=== PATIENT | female | born 1970 | race Caucasian/White ===

== ENCOUNTER → 2025-01-12 07:21 | Outpatient (REF) | payer OTHER, SELFPAY | LOC: HWRAD 07:21 | PROVIDERS: ATTENDING PHYSICIAN Family Medicine | DX: K76.0 Fatty (change of) liver, not elsewhere classified (principal) | CPT/HCPCS: 76700 ==

== ENCOUNTER → 2025-03-15 12:30 | Outpatient (REF) | payer OTHER, SELFPAY | LOC: HWRAD 12:30 | PROVIDERS: ATTENDING PHYSICIAN Family Medicine; REFERRING PHYSICIAN Chiropractor | DX: M19.90 Unspecified osteoarthritis, unspecified site (principal) | CPT/HCPCS: 73140 ==

== ENCOUNTER → 2025-03-19 14:55 | Outpatient (REF) | payer OTHER, SELFPAY | LOC: HWRAD 14:55 | PROVIDERS: ATTENDING PHYSICIAN Family Medicine | DX: Z87.891 Personal history of nicotine dependence (principal) | CPT/HCPCS: 71271 ==

== ENCOUNTER → 2025-03-27 06:41 | Outpatient (REF) | payer OTHER, SELFPAY | LOC: MRI 3T 06:41 | PROVIDERS: ATTENDING PHYSICIAN Family Medicine | DX: M25.519 Pain in unspecified shoulder (principal) | CPT/HCPCS: 73221 ==

== ENCOUNTER → 2025-03-30 16:45 | Outpatient (REF) | payer OTHER, SELFPAY | LOC: RAD 16:45 | PROVIDERS: ATTENDING PHYSICIAN Family Medicine | DX: K86.89 Other specified diseases of pancreas (principal) | CPT/HCPCS: 74170; Q9967 ==

== ENCOUNTER → 2025-04-10 12:02 | Outpatient (REF) | payer OTHER, SELFPAY | LOC: MRI 12:02 | PROVIDERS: ATTENDING PHYSICIAN Family Medicine | DX: G43.E09 Chronic migraine with aura, not intractable, without status migrainosus (principal) | CPT/HCPCS: 70553; A9575 ==

== ENCOUNTER → 2025-06-26 09:06 | Outpatient (REF) | payer OTHER, SELFPAY | LOC: PAVMRI 09:06 | PROVIDERS: ATTENDING PHYSICIAN Family Medicine | DX: R22.2 Localized swelling, mass and lump, trunk (principal) | CPT/HCPCS: 71552; A9575 ==

== ENCOUNTER → 2025-07-03 12:30 | Outpatient (REF) | payer OTHER, SELFPAY | LOC: HWRAD 12:30 | PROVIDERS: ATTENDING PHYSICIAN Internal Medicine Rheumatology; FAMILY PHYSICIAN Family Medicine; REFERRING PHYSICIAN Chiropractor | DX: M50.90 Cervical disc disorder, unspecified, unspecified cervical region (principal); M54.50 Low back pain, unspecified | CPT/HCPCS: 72114 ==

== ENCOUNTER → 2025-07-12 07:48 | Outpatient (REF) | payer OTHER, SELFPAY | LOC: HWRCS 07:48 | PROVIDERS: ATTENDING PHYSICIAN Internal Medicine Cardiovascular Disease; FAMILY PHYSICIAN Family Medicine | DX: R06.02 Shortness of breath (principal); R00.2 Palpitations | CPT/HCPCS: 93306 ==

== ENCOUNTER 2025-07-17 20:02 | Emergency (ER) | payer OTHER, SELFPAY ==
[2025-07-17 20:03] VITALS: BP 157/89
[2025-07-17 20:26] LABS: Hematocrit 41.5 % (37.0-47.0); Hemoglobin 14.1 g/dL (12.0-16.0); Mean Corp Hgb Conc. 34.0 g/dL (33.0-37.0); Mean Corpuscular Volume 84.9 fL (81.0-99.0); Nucleated Red Blood Cells % 0 %; Platelet Count 284 10^3/uL (130-400); Red Cell Dist. Width 14.6 % (11.5-14.5)
[2025-07-17 20:49] LABS: ALT (SGPT) 24 U/L (0-35); AST (SGOT) 19 U/L (14-36); Albumin 4.2 g/dl (3.5-5.0); Alkaline Phosphatase 83 U/L (38-126); Blood Urea Nitrogen 14 mg/dl (7-17); Calcium 10.1 mg/dl (8.4-10.2); Carbon Dioxide 30 mmol/L (22-30); Chloride 102 mmol/L (98-107); Glucose 116 mg/dl (70-99); Lipase 236 U/L (23-300); Potassium 4.2 mmol/L (3.5-5.1); Sodium 137 mmol/L (135-145); Total Protein 6.8 g/dl (6.3-8.2); eGFR > 60.00
[2025-07-17 21:22] VITALS: BMI 44.9
[2025-07-17 21:25] VITALS: BP 120/79
--- NOTE | 2025-07-17 22:07 | ED.GENMED ---
History of Present Illness
General
Chief Complaint: Abdominal Pain
Source: patient
Exam Limitations: none
Time Seen by Provider: 07/17/25 21:53
Nursing documentation reviewed up to this point in time: agreed with
History of Present Illness
History of Present Illness:
Patient to ED with complaint of worsening upper abdominal pain, bloating, back pain. Symptoms started approx 1 week ago and continue to worsen. Denies vomiting, diarrhea. Reports nausea and constipation. [place] feverish at home. Sent to ED by PCP
to r/o pancreatitis. States she was on ozempic and diagnosed with pancreatitis. Ozempic discontinued, placed on Monjero this past spring. Has not had a dose change recently. To ED accompanied by spouse
Past History
Past History
ED Past Medical History: NIDDM and Psychiatric
ED Past Surgical History: Cholecystectomy
Review of Systems
Review of Systems
Allergies reviewed?: Yes
All Other Systems: ROS reviewed and negative except as documented in HPI and ROS
Constitutional: Reports no symptoms
EENT: Reports no symptoms
Respiratory: Reports no symptoms
Cardiac: Reports no symptoms
ABD/GI: Reports abdominal pain, nausea and constipated
: Reports no symptoms
Musculoskeletal: Reports back pain (mid back pain)
Skin: Reports no symptoms
Neurological: Reports no symptoms
Psychiatric: Reports no symptoms
Phy Exam
General Physical Exam
General Presentation: well appearing and mild distress
General age: appears stated age
General Skin: warm and dry
General Habitus: normal
General Mental: alert
Cardiovascular Exam
Cardiovascular Exam: regular rate/rhythm and no edema
Pulmonary Exam
Pulmonary Exam: lungs clear and no respiratory distress
Gastrointestinal Exam
Gastrointestinal Exam: normal bowel sounds, soft, no organomegaly, no pulsatile mass and non distended
Palpation: generalized: Moderate tenderness
Musculoskeletal Exam
Musculoskeletal Exam: full ROM and neuro vasc intact
Skin Exam
Skin Exam: normal color, warm/dry and no rash
Psychiatric Exam
Psychiatric Exam: normal mood/affect
Course
Orders/Labs/Results
Orders:
Orders
07/17/25 20:12
Complete Blood Count/With Diff Urgent
Comprehensive Metabolic Panel Urgent
Lipase Urgent
07/17/25 22:05
CT Abd/pelvis W Iv Cont Urgent
Comment:
Reason For Exam: UPper abd pain radiating to back.
07/17/25 22:07
0.9% Sodium Chloride 1000 ml [Nss] 1,000 ml IV BOLUS
07/17/25 23:22
Urinalysis Reflex To Culture Urgent
Date Specimen was Collected: 07/17/25
Time Specimen was Collected: 23:16
Urine Microscopic Reflex Cult Urgent
Urine Culture Urgent
ELENA Source: U
Specimen Description:
Date Specimen was Collected: 07/17/25
Time Specimen was Collected: 23:16
Abnormal Lab Results
07/17/25 07/17/25
20:12 23:22
RDW 14.6 H %
(11.5-14.5)
MPV 11.2 H fL
(7.4-10.4)
Glucose 116 H mg/dl
(70-99)
Leukocyte Esterase Rfl 1+ A
(Negative)
Urine Bacteria (Reflex) Few A
(Negative)
Urine Yeast Moderate A
(Negative)
Urine Glucose 4+ A
(Negative)
Urine Albumin (Reflex) 1+ A
(Neg - Trace)
07/17/25 20:12
07/17/25 20:12
Vital Signs
Initial and Last Documented VS:
Initial Vital Signs
Temp Pulse Resp BP Pulse Ox
98.3 F 83 16 157/89 95
07/17/25 20:03 07/17/25 20:03 07/17/25 20:03 07/17/25 20:03 07/17/25 20:03
Last Documented Vital Signs
Temp Pulse Resp BP Pulse Ox
98.7 F 86 18 131/78 95
07/17/25 21:25 07/17/25 23:30 07/17/25 23:30 07/17/25 23:30 07/17/25 23:30
*Radiology
Radiology exam reviewed: radiology read reviewed
*Pulse Oximetry
SaO2: 95
Oxygen Mode of Delivery: Room air
Patient hypoxic: no
*Critical Care Note
Total Time (30-74mins, 75-104mins- exclusive of procedures): Not Applicable
Update Note
Update Note:
Patient to ED with abdominal pain, concern for pancreatitis. VSS, she remains afebrile. Labs reviewed. Lipase 236. CBC, CMP without concerning findings. CT abd/pelvis results reviewed with her. No evidence of pancreatitis. No acute disease
process present. WIll discharge home, close followup with PCP. Given instructions on s/s to return to ED and she is agreeable to plan
ED Attending Note
-
Portions of this chart may have been created with voice recognition software.� Occasional wrong word or��sound alike� substitutions may have occurred due to the inherent limitations of voice recognition software.
Discharge Plan
Departure
Patient Disposition: Home (Routine Discharge)
Date of Disposition: 07/18/25
Time of Disposition: 00:00
Patient with high blood pressure during this ER visit?: No
Condition: Good
Covid-19: Not Applicable
Discharge Problem:
Abdominal pain
Instructions: Abdominal Pain
Referrals:
John Villatoro MD [Family Provider, Family Practice] - Tomorrow
Activity Restrictions/Additional Instructions:
Return to the emergency department immediately for any changes in/worsening of your symptoms.
Interventions
Interventions:
*Risk Screen - Suicide Last Done: 07/17/25 20:08
*General Assessment Last Done: 07/17/25 21:22
*Neglect/Abuse Screening Last Done: 07/17/25 20:08
*ED- Fall Risk Assessment Last Done: 07/17/25 21:22
*ED COVID-19 Vaccine History Last Done: 07/17/25 21:22
*Nursing Disposition Last Done: 07/18/25 00:07
EI-Lmxpzs-Jasfpobkza Assessment Last Done: 07/17/25 21:27
Discharge Date and Time
Print Language: MICRONESIAN
[2025-07-17] MEDS: NSS 1000 IV (22:17)
[2025-07-17 23:30] VITALS: BP 131/78
[2025-07-17 23:33] LABS: Urine Character Clear (Clear)
[2025-07-17 23:47] LABS: Urine Squamous Cell >30 /LPF (Few)
[2025-07-17 23:48] LABS: Urine Red Blood Cell None Seen /HPF (0-2)
== END 2025-07-18 00:07 | disposition home or self-care (01) ==
LOC: EMR 20:02
PROVIDERS: Emergency Medicine; Nurse Practitioner; EMERGENCY PHYSICIAN Emergency Medicine; FAMILY PHYSICIAN Family Medicine
DX: R10.10 Upper abdominal pain, unspecified (principal); E11.9 Type 2 diabetes mellitus without complications; Z79.84 Long term (current) use of oral hypoglycemic drugs
CPT/HCPCS: 96360; 96361; 99284; 74177; 80053; 81003; 81015; 83690; 85025; 87086; Q9967

== ENCOUNTER → 2025-07-24 08:39 | Outpatient (REF) | payer OTHER, SELFPAY | LOC: PET 08:39 | PROVIDERS: ATTENDING PHYSICIAN Internal Medicine Cardiovascular Disease | DX: R00.2 Palpitations (principal); R06.02 Shortness of breath | CPT/HCPCS: 78431; A9555; J2785 ==

== ENCOUNTER → 2025-10-19 10:38 | Outpatient (REF) | payer OTHER, SELFPAY | LOC: RAD 10:38 | PROVIDERS: ATTENDING PHYSICIAN Otolaryngology; FAMILY PHYSICIAN Specialist Research Data Abstracter/Coder | DX: R13.12 Dysphagia, oropharyngeal phase (principal) | CPT/HCPCS: 74221 ==